=== PATIENT | male | born 1950 | race Caucasian/White ===

== ENCOUNTER → 2023-04-15 | Outpatient (CLI) | payer MEDICARE | END | disposition home or self-care (01) | LOC: RAH 09:04 | PROVIDERS: ATTEND Internal Medicine Cardiovascular Disease | DX: R01.1 Cardiac murmur, unspecified (principal); R94.31 Abnormal electrocardiogram [ECG] [EKG]; R06.01 Orthopnea | CPT/HCPCS: 76775 ==

== ENCOUNTER → 2023-04-18 | Outpatient (CLI) | payer MEDICARE ==
[~2023-04-18] MED LIST: ALBU90AE2 IH; BENZ200C53 PO; EZET10TA48 PO; HYDR-3421 PO; MONT-39 PO
== END | disposition home or self-care (01) ==
LOC: RAH 12:51
PROVIDERS: ATTEND Internal Medicine Cardiovascular Disease
DX: J90 Pleural effusion, not elsewhere classified (principal); R06.01 Orthopnea
CPT/HCPCS: 71046